=== PATIENT | female | born 1950 | race Caucasian/White ===

== ENCOUNTER 2017-06-30 07:51 | Emergency (ER) | payer MEDICARE, BC ==
[~2017-06-30] VITALS: Ht 162.6 cm; Wt 78.5 kg
[2017-06-30 08:04] VITALS: BP 123/70; PULSE 82; RESP 16; TEMP 99; O2SAT 96
--- NOTE | 2017-06-30 08:23 | PD ---
HPI Chief Complaint: Injury Time Seen by Provider: 08:12 Travel History International Travel<30 days: No Contact w/Intl Traveler<30days: No Traveled to known affect area: No History of Present Illness HPI 67 y/o female states she had a trip and fall while dancing last night and injured her wrist. She notes pain to the left wrist and denies other complaints. She didn't hit her head or lose consciousness. She states when she woke this morning and it still hurts she elected to come in. Quality pain is sharp. Severity is moderate. Pain is worse with movement. PFSH Past Medical History Medical History: Denies Significant Hx Immunizations Current: Yes ?: Not Past Surgical History Hysterectomy: Yes Social History Alcohol Use: Yes (2-3 DRINKS DAILY) Tobacco Use: No (FORMER) Substance Use: No Allergies-Medications (Allergen,Severity, Reaction): Coded Allergies: No Known Allergies (Verified Allergy, Unknown, 06/30/17) Reported Meds & Prescriptions Reported Meds & Active Scripts Active Percocet (Oxycodone-Acetaminophen) 5-325 mg Tab 1 Tab PO Q6H PRN Review of Systems Except as stated in HPI: all other systems reviewed are Neg Physical Exam Narrative General: 67 y/o patient in no apparent distress Skin: trauma noted to left wrist with swelling Eyes: pupils equal NECK: no pain with palpation in midline and with ROM, nexus criteria negative Cardiovascular: Regular rate and rhythm Respiratory: normal respiratory effort noted Abdomen: soft, nontender, nondistended Back: No step-offs, midline spine nontender with palpation Extremities: Pain with palpation of left wrist, no lacerations over, neurovascularly intact, no pain with palpation of other joints Neuro: awake, alert, sensation and motor grossly intact Data Data Last Documented VS Vital Signs Date Time Temp Pulse Resp B/P (MAP) Pulse Ox O2 Delivery O2 Flow Rate FiO2 06/30/17 08:04 99.0 82 16 123/70 (87) 96 Orders Orders Wrist, Complete ([id number]) (06/30/17 ) Splint Or Brace Apply/Monitor (06/30/17 09:25) Oxycodone-Acetamin 5-325 Mg (Percocet (06/30/17 10:00) MDM Medical Decision Making Medical Screen Exam Complete: Yes Emergency Medical Condition: Yes Medical Record Reviewed: Yes (pmh confirmed) Interpretation(s) Last 24 hours Impressions Wrist X-Ray 06/30/17 0000 Signed Impressions: Service Date/Time: Friday, June 30, 2017 08:42 - CONCLUSION: Distal radial and ulnar fractures. Ignacio Villanueva MD I personally reviewed x-ray Differential Diagnosis fracture, strain, contusion... Narrative Course will check xray and reeval, offered pain medication but wanting to wait for now Given extension into joint will discuss with orthopedic physician Patient denies any new complaints, all questions answered. Patient knows that follow up is incumbent on them and to return to the emergency room immediately if new or worsening symptoms develop. Patient given strict return precautions, vitals reviewed and are normal, agrees to further workup as an outpatient. Physician Communication Physician Communication dr marion states can go home with splint and follow in the office Diagnosis Primary Impression: Fracture of radial shaft, with ulna, left, closed Qualified Codes: S52.202A - Unspecified fracture of shaft of left ulna, initial encounter for closed fracture; S52.302A - Unspecified fracture of shaft of left radius, initial encounter for closed fracture Referrals: Albert Marion MD call for appointment this week Patient Instructions: General Instructions Additional Instructions: return as needed, don't drive while taking percocet Med/Other Pt SpecificInfo: Prescription(s) given Scripts Oxycodone-Acetaminophen (Percocet) 5-325 mg Tab 1 TAB PO Q6H Y for PAIN, #15 TAB 0 Refills Prov: Patricia Rodriguez MD 06/30/17 Disposition: 01 DISCHARGE HOME Condition: Stable Patricia Rodriguez MD Jun 30, 2017 08:23
--- NOTE | 2017-06-30 09:19 | RADRPT ---
EXAM DATE/TIME: 06/30/2017 08:42 [facility] COMPARISON: No previous studies available for comparison. INDICATIONS : Fell, left wrist pain MEDICAL HISTORY : None. SURGICAL HISTORY : None. ENCOUNTER: Initial ACUITY: 1 day PAIN SCORE: 8/10 LOCATION: Left wrist FINDINGS: There is a comminuted fracture at the distal radius with extension to the radiocarpal joint. There is also fracture at the base of the ulnar styloid. The carpal bones are normally aligned. CONCLUSION: Distal radial and ulnar fractures. Ignacio Villanueva MD on June 30, 2017 at 9:16 Board Certified Radiologist. This report was verified electronically.
[2017-06-30] MEDS ORDERED: oxyCODONE/ACETAMINOPHEN 5 MG/325 MG TAB PO ONE (10:00)
[2017-06-30] MEDS ORDERED: PERC5TAB12 PO (10:04)
[2017-06-30 10:45] VITALS: BP 125/74; PULSE 72; RESP 16; O2SAT 99
== END 2017-06-30 10:52 | disposition home or self-care (01) ==
LOC: PHED 07:51
DX: S52.302A Unspecified fracture of shaft of left radius, initial encounter for closed fracture (principal); S52.202A Unspecified fracture of shaft of left ulna, initial encounter for closed fracture; W01.0XXA Fall on same level from slipping, tripping and stumbling without subsequent striking against object, initial encounter; Y93.41 Activity, dancing
CPT/HCPCS: 29125; 73110